=== PATIENT | female | born 1965 | race Caucasian/White ===

== ENCOUNTER 2018-11-02 07:12 | Day surgery (SDC) | payer OTHER ==
[~2018-11-02] VITALS: Ht 160 cm; Wt 138.6 kg
[2018-11-02 07:47] LABS: BASOPHILS 0.2 % (0-2); EOSINOPHILS 0.9 % (0-7); HEMATOCRIT 37.1 % (36.0-48.0); HEMOGLOBIN 12.2 g/dL (12-16); IMMATURE GRANULOCYTES 0.4 % (0-5); LYMPHOCYTES 17.6 % (15-50); MCH 28.3 pg (26.0-34.0); MCHC 32.9 g/dL (31.0-37.0); MCV 86.1 fL (80.0-100.0); MEAN PLATELET VOLUME 8.7 fL (7.4-10.4); MONOCYTES 7.4 % (2-11); NEUTROPHILS 73.5 % (40-80); PLATELET COUNT 235 10x3/uL (130-400); RBC 4.31 10x6/uL (4.00-5.40); RDW 14.8 % (11.5-14.5); WBC 8.1 10x3/uL (4.8-10.8)
[2018-11-02 07:58] LABS: ANION GAP 12.9 mmol/L (8-16); CALCIUM 8.8 mg/dL (8.5-10.1); CARBON DIOXIDE 26.7 mmol/L (21.0-32.0); CREATININE - SERUM 0.9 mg/dL (0.6-1.3); POTASSIUM - SERUM 3.6 mmol/L (3.5-5.1)
[2018-11-02] MEDS ORDERED: TOPIRAMATE PO (08:23)
[2018-11-02] MEDS ORDERED: BUPROPION HCL150 M1 PO (08:25)
[2018-11-02] MEDS ORDERED: TRIAMT/HCTZ CAP 37. PO (08:25)
[2018-11-02 08:31] VITALS: BP 138/85; Ht 160 cm; Wt 138.6 kg
--- NOTE | 2018-11-04 12:17 | OP ---
PATIENT NAME: LUKE JIMENEZ MEDICAL RECORD: [id number] :69 LOCATION:[facility] ADMISSION DATE: SURGEON: RAY TOVAR DO DATE OF OPERATION: 11/02/2018 PROCEDURE: Colonoscopy with polypectomy. INDICATION FOR PROCEDURE: Chronic constipation, right upper quadrant and left upper quadrant abdominal pain, and nausea. SCOPE: Olympus video pediatric colonoscope. MEDICATIONS: Propofol 500 mg IV per anesthesia. WITHDRAWAL TIME: 19 minutes. ESTIMATED BLOOD LOSS: Minimal. COMPLICATIONS: None. FINDINGS: Informed consent was given. The patient was made comfortable with the above medication. After reaching an adequate level of sedation by slow IV push, the patient was placed on her left side. A digital rectal examination was performed and was normal. The endoscope was then advanced under direct visualization through the rectum to the cecum, confirmed by the presence of the appendiceal orifice and the ileocecal valve. The endoscope was slowly withdrawn and mucosa was carefully examined. The prep quality was good. There were 3 polyps visualized on today's examination. They were all located in the ascending colon. They were all benign appearing and sessile, ranging in size from 2-4 mm in diameter. Two of these polyps were removed using hot forceps and the third polyp was removed using a hot snare. All polyps were retrieved. There was evidence of mild diverticulosis involving the sigmoid colon. Retroflexion was performed in the rectum with visualization of grade I internal hemorrhoids without bleeding. The endoscope was withdrawn from the patient. The patient tolerated the procedure well and there were no complications. IMPRESSION: 1. Three ascending colon polyps as described above, removed using combination of hot forceps and hot snare. 2. Mild diverticulosis of the sigmoid colon. 3. Grade I internal hemorrhoids without bleeding. PLAN AND RECOMMENDATIONS: 1. Discharge home when recovery parameters are met. 2. Follow up biopsy specimen results. 3. High-fiber diet. 4. Supplement diet with one tablespoon of fiber daily. 5. Linzess 145 mcg daily. 6. Recall colonoscopy in 3 years for surveillance based on personal history of polyps. TRANSINT:[id number] Voice Confirmation ID: [id number] DOCUMENT ID: [id number] OPERATIVE REPORT [id number] LUKE JIMENEZ RAY TOVAR DO at 1776 CC: [id number] DICTATION DATE: 11/02/18 1022 [facility] CAP BEVELER: 11/02/18 1051 [facility] 11/02/18 [address] [id number] [place] [address]
== END 2018-11-02 11:20 | disposition home or self-care (01) ==
LOC: D.OPS 07:12
PROVIDERS: Anesthesiology
DX: K63.5 Polyp of colon (principal); K57.30 Diverticulosis of large intestine without perforation or abscess without bleeding; K64.0 First degree hemorrhoids

== ENCOUNTER 2018-11-16 05:43 | Day surgery (SDC) | payer OTHER ==
[~2018-11-16] VITALS: Ht 160 cm; Wt 138.6 kg
[~2018-11-16 05:43] MED LIST: BUPROPION HCL150 M1 PO; TOPIRAMATE PO; TRIAMT/HCTZ CAP 37. PO
[2018-11-16 06:30] LABS: HEMATOCRIT 38.5 % (36.0-48.0); HEMOGLOBIN 12.3 g/dL (12-16); MCH 27.9 pg (26.0-34.0); MCHC 31.9 g/dL (31.0-37.0); MCV 87.3 fL (80.0-100.0); MEAN PLATELET VOLUME 9.3 fL (7.4-10.4); RBC 4.41 10x6/uL (4.00-5.40); RDW 14.8 % (11.5-14.5); WBC 8.7 10x3/uL (4.8-10.8)
[2018-11-16] MEDS ORDERED: LINZESS145 MCG PO (07:03)
[2018-11-16 07:07] VITALS: BP 139/53; Ht 160 cm; Wt 138.6 kg
--- NOTE | 2018-11-16 10:11 | NUR ---
0810-RECD TO ROOM. 0815-DR TOVAR IN TO REPORT FINDINGS 0850-FULL LIQUIDS TOLERATED WITHOUT NAUSEA 0910-IV D/C AND VOIDS 0935-DISCHARGE INSTRUCTIONS REVIEWED 0940-D/C HOME VIA WHEELCHAIR WITH SPOUSE.
--- NOTE | 2018-11-18 09:41 | OP ---
PATIENT NAME: LUKE JIMENEZ MEDICAL RECORD: [id number] :69 LOCATION:[facility] ADMISSION DATE: SURGEON: RAY TOVAR DO DATE OF OPERATION: 11/16/2018 PROCEDURE: EGD with biopsies. INDICATIONS FOR PROCEDURE: Dysphagia, nausea, right upper quadrant and left upper quadrant abdominal pain. SCOPE: Olympus video gastroscope. MEDICATIONS: Propofol 250 mg IV per anesthesia. ESTIMATED BLOOD LOSS: Minimal. COMPLICATIONS: None. FINDINGS AND DESCRIPTION OF PROCEDURE: Informed consent was given. The patient was made comfortable with the above medication. After reaching an adequate level of sedation by slow IV push, the patient was placed on her left side. The endoscope was advanced under direct visualization through the mouth, to the second portion of the duodenum. The upper, middle, and lower thirds of the esophagus appeared normal. Random cold forceps biopsies were taken from the mid esophagus to rule out the presence of eosinophils. At the GE junction, there was mild evidence of LA class A reflux-induced esophagitis. The endoscope was advanced beyond the GE junction, into the stomach and retroflexed to view the cardia and fundus, which appeared normal. The endoscope was advanced beyond the body and down to the antrum and prepyloric regions. The entire stomach appeared normal. Random cold forceps biopsies were taken from the antrum and incisura to rule out the presence of H. pylori and to submit for histopathology. The endoscope was advanced beyond the pylorus into the duodenum. The entire examined duodenum appeared normal down to the second portion. The endoscope was withdrawn from the patient. The patient tolerated the procedure well and there were no complications. IMPRESSION: 1. LA class A reflux-induced esophagitis. 2. Otherwise, normal upper endoscopy. Biopsies were taken from the stomach and mid esophagus. PLAN AND RECOMMENDATIONS: 1. Discharge home when recovery parameters are met. 2. Follow up biopsy specimen results. 3. GERD diet and reflux precautions. 4. Trial of omeprazole 40 mg daily times 30 days. 5. Gastric emptying scan regarding the nausea and abdominal pain. 6. Right upper quadrant ultrasound regarding the right upper quadrant abdominal pain. 7. Consider PIPIDA scan, pending results of above studies. 8. If dysphagia persists while on medications, consider barium esophagram and/or esophageal manometry. 9. Follow up in GI clinic in 3-4 weeks. TRANSINT:[id number] Voice Confirmation ID: [id number] DOCUMENT ID: [id number] OPERATIVE REPORT [id number] LUKE JIMENEZ NATHAN A DO at 0941 CC: [id number] DICTATION DATE: 11/16/18806 CLEANER HOUSEKEEPING: 11/16/18 0856 [facility] 11/16/18 [place] [id number] [place] [id number]
== END 2018-11-16 10:05 | disposition home or self-care (01) ==
LOC: D.OPS 05:43
PROVIDERS: Anesthesiology
DX: K21.0 Gastro-esophageal reflux disease with esophagitis (principal); K29.50 Unspecified chronic gastritis without bleeding; Z01.812 Encounter for preprocedural laboratory examination

== ENCOUNTER → 2018-12-04 11:32 | Outpatient (CLI) | payer OTHER ==
[2018-11-16 07:07] VITALS: BMI 54.1
[~2018-12-04 11:32] MED LIST changes: +LINZESS145 MCG PO
== END | disposition home or self-care (01) ==
LOC: D.US 12-02 08:30 → D.NM 12-02 09:30 → D.US 11:00
PROVIDERS: ATTEND Internal Medicine Gastroenterology
DX: R10.9 Unspecified abdominal pain (principal); R11.0 Nausea

== ENCOUNTER → 2018-12-11 07:42 | Outpatient (CLI) | payer OTHER ==
[2018-11-16 07:07] VITALS: BMI 54.1
[2018-12-11 09:48] LABS: ALBUMIN 3.8 g/dL (3.4-5.0); BILIRUBIN - DIRECT 0.09 mg/dL (0.00-0.30); BILIRUBIN - INDIRECT 0.41 mg/dL (0.00-1.00); BILIRUBIN - TOTAL 0.5 mg/dL (0.2-1.3); PROTEIN - SERUM 8.2 g/dL (6.4-8.2)
== END | disposition home or self-care (01) ==
LOC: D.MRI 07:42
PROVIDERS: ATTEND Internal Medicine Gastroenterology
DX: R93.89 Abnormal findings on diagnostic imaging of other specified body structures (principal); K76.9 Liver disease, unspecified; K76.0 Fatty (change of) liver, not elsewhere classified

== ENCOUNTER → 2018-12-18 08:01 | Outpatient (CLI) | payer OTHER ==
[2018-11-16 07:07] VITALS: BMI 54.1
[2018-12-18 08:54] LABS: AMYLASE - SERUM 41 U/L (25-115); LIPASE 219 U/L (73-393)
== END | disposition home or self-care (01) ==
LOC: D.LAB 07:45 → D.NM 08:00 → D.LAB 08:01
PROVIDERS: ATTEND Internal Medicine Gastroenterology
DX: R10.11 Right upper quadrant pain (principal); K59.09 Other constipation

== ENCOUNTER → 2019-09-10 07:22 | Outpatient (CLI) | payer OTHER ==
[2018-11-16 07:07] VITALS: BMI 54.1
== END | disposition home or self-care (01) ==
LOC: D.MRI 06-18 08:00
PROVIDERS: ATTEND Internal Medicine Gastroenterology
DX: K76.9 Liver disease, unspecified (principal)